=== PATIENT | female | born 1975 | race Caucasian/White ===

== ENCOUNTER 2017-03-12 10:39 | Emergency (ER) | payer OTHER ==
[~2017-03-12] VITALS: Ht 160 cm; Wt 89.0 kg
[~2017-03-12 10:39] MED LIST: CYCL-319 PO; HYDR-906 PO; IBUP-1542 PO; IBUPROFEN; NAPR-260 PO
[2017-03-12 10:45] VITALS: Ht 160 cm; Wt 89.0 kg
[2017-03-12] MEDS ORDERED: KETOROLAC 60 MG INJ IM STA (11:39)
[2017-03-12] MEDS ORDERED: traMADol 50 MG TAB PO ONE (14:30)
[2017-03-12] MEDS ORDERED: TRAM50TA2 PO (14:31)
[2017-03-12] MEDS ORDERED: IBUP-1542 PO (14:31)
--- NOTE | 2017-03-12 14:34 | ERD ---
ER Documentation Chief Complaint Date/Time DATE: 03/12/17 TIME: 14:32 Chief Complaint neck pain after stretching since monday HPI This 41-year-old fell presents with lower neck pain after stretching accident 5 days ago. She felt a pop and has pain rating to her right shoulder and right upper extremity. She has some mild pain radiating to her chest. She shortness of breath, fevers, hemoptysis, urinary complains, vomiting. ROS All systems reviewed and are negative except as per history of present illness. Medications Home Meds Active Scripts Tramadol HCl (Tramadol HCl) 50 Mg Tablet, 50 MG PO Q4 Y for PAIN, #15 TAB Prov:DAVID ALEXANDER MD 03/12/17 Ibuprofen* (Motrin*) 600 Mg Tab, 600 MG PO Q6, #20 TAB Prov:DAVID ALEXANDER MD 03/12/17 Cyclobenzaprine Hcl* (Cyclobenzaprine Hcl*) 10 Mg Tablet, 10 MG PO TID, #15 TAB Prov:KYE CHOPRA PA-C 06/17/16 Naproxen* (Naprosyn*) 500 Mg Tablet, 500 MG PO BID Y for PAIN AND/OR INFLAMMATION, #30 TAB Prov:KYE CHOPRA PA-C 06/17/16 Hydrocodone/Acetaminophen ([place] 5-325 Tablet) 1 Each Tablet, 1 TAB PO Q6H Y for PAIN, #7 TAB Prov:KYE CHOPRA PA-C 06/17/16 Ibuprofen* (Motrin*) 600 Mg Tab, 600 MG PO Q6, #30 TAB Prov:KYLEIGH WHELAN PA-C 03/04/16 Reported Medications [Ibuprofen] No Conflict Check 05/31/12 Allergies Allergies: Coded Allergies: Tetracycline (Verified Allergy, Mild, RASH AND ITCHING, SWELLING, 05/31/12) PMhx/Soc History of Surgery: Yes (FOOT, CASTILLO) Anesthesia Reaction: No Hx Neurological Disorder: No Hx Respiratory Disorders: No Hx Cardiac Disorders: No Hx Psychiatric Problems: No Hx Miscellaneous Medical Probl: No Hx Alcohol Use: Yes (Sporadic drinker) Hx Substance Use: No Hx Tobacco Use: No Physical Exam Vitals Vital Signs Date Time Temp Pulse Resp B/P Pulse Ox O2 Delivery O2 Flow Rate FiO2 03/12/17 10:45 98.1 86 18 120/63 99 Physical Exam Const: [] Alert, not ill-appearing. Head: Atraumatic Eyes: Normal Conjunctiva ENT: Normal External Ears, Nose and Mouth. Neck: Full range of motion..~ No meningismus. Mild tenderness of the base of the right cervical paraspinous muscles and right trapezius. Resp: Clear to auscultation bilaterally Cardio: Regular rate and rhythm, no murmurs Abd: Soft, non tender, non distended. Normal bowel sounds Skin: No petechiae or rashes Back: No midline or flank tenderness Ext: No cyanosis, or edema Neur: Awake and alert. Patient has normal gait without appreciable focal neurologic deficits or weakness. Psych: Normal Mood and Affect Results 24 hrs Current Medications Medications (Trade) Dose Ordered Sig/Pham Route PRN Reason Start Time Stop Time Status Last Admin Dose Admin Ketorolac Tromethamine (Toradol) 60 mg ONCE STAT IM 03/12/17 11:39 03/12/17 11:41 DC 03/12/17 12:18 Tramadol HCl (Ultram) 50 mg ONCE ONCE PO 03/12/17 14:30 03/12/17 14:31 DC Procedures/MDM EKG: Rate/Rhythm: [Normal Sinus Rhythm] rate equals 74 QRS, ST, T-waves: [No changes consistent w/ acute ischemia] Impression: [No evidence of ischemia or arrhythmia]. Impression-normal EKG X-ray C spine 3V Interpreted by me: Bones: No fracture Joints: No dislocation Foreign body: None. Impression-normal C-spine x-ray Chest X-ray 1V Interpreted by me: Soft Tissue: No acute abnormalities Bones: No acute abnormalities Mediastinum/Cardiac Silhouette/Lungs: [No acute abnormalities]. Impression- normal 1 view chest x-ray Patient given Toradol 60 mg exam tramadol 50 mg by mouth. Pain throughout the ED course. Patient sits with lower neck pain and right thoracic pain that evidence of PE, pneumonia, fracture, dislocation, neurologic deficit. She appears to have thoracic strain or possible cervical radicular symptoms. Patient is advised to follow-up with primary care doctor this week or return to the ER for new or worsening symptoms. The patient was stable with no new complaints during the ER course. Clinically, there is no current evidence to suggest meningitis, sepsis, acute abdomen, pneumonia, acute coronary syndrome, pulmonary embolism, or any other emergent condition appearing to require further evaluation or hospitalization. The patient should certainly return for any new or worsening symptoms per the aftercare instructions. They should otherwise follow-up with her primary care doctor for reevaluation this week. Departure Diagnosis: Primary Impression: Strain of thoracic spine Encounter type: initial encounter Qualified Code: S29.019A - Strain of thoracic spine, initial encounter Additional Impression: Neck pain Condition: Stable Patient Instructions: Neck Pain, No Trauma, Thoracic Strain Additional Instructions: Examines normal hoy. Cheque otro vez con christine doctor primario en el proximo valencia or regresa para mas o nueva simptomas. DAVID ALEXANDER MD March 12, 2017 14:34
--- NOTE | 2017-03-12 14:50 | RADRPT ---
PROCEDURE: CR, chest CLINICAL INDICATION: Chest pain. TECHNIQUE: AP chest. COMPARISON: None available. FINDINGS: The heart is not enlarged. There is no acute infiltrate in the lungs. No pleural effusion. IMPRESSION: 1. Unremarkable chest x-ray. RPTAT: GG .Roger Frey MD, Date Time Electronically viewed and signed by .Roger Frey MD, MD on 03/12/2017 14:50 .Y/
--- NOTE | 2017-03-12 16:31 | RADRPT ---
PROCEDURE: XR Cervical Spine. CLINICAL INDICATION: Neck pain. TECHNIQUE: AP and lateral views of the cervical spine were obtained. COMPARISON: None FINDINGS: The cervical lordosis is maintained. The vertebral body and disk space heights are normal. No acut e fracture or subluxation is seen. The atlantoaxial joint, odontoid process, and lateral masses are intact. No prevertebral soft tissue abnormality is seen. IMPRESSION: Unremarkable cervical spine series. RPTAT: HPNM Physician Miryam Date Time Electronically viewed and signed by Physician Miryam on 03/12/2017 16:31 /
== END 2017-03-12 15:54 | disposition home or self-care (01) ==
LOC: FTE 10:39
DX: S29.019A Strain of muscle and tendon of unspecified wall of thorax, initial encounter (principal); R07.9 Chest pain, unspecified; X50.9XXA Other and unspecified overexertion or strenuous movements or postures, initial encounter; Y92.9 Unspecified place or not applicable
CPT/HCPCS: 71010; 72040; 93005; 96372; J1885; Z7502; Z7610